=== PATIENT | female | born 1985 | race Caucasian/White ===

== ENCOUNTER 2024-02-09 21:30 | Emergency (ER) | payer BC ==
[~2024-02-09] VITALS: Ht 172.7 cm; Wt 100.0 kg
[~2024-02-09 21:30] MED LIST: CARAFATE 1GM1 G PO; CEFTIN500 MG PO; CELEXA 20MG20 MG/TAB PO; IBU600 MG PO; NORCO 325 MG-51 TAB PO; PERCOCET 325 MG1 TA2 PO; PRENATAL TABLET PO; PROAIR HFA0.09 MG/AC IH; PROTONIX 40MG T40 MG PO; TYLENOL 325MG325 MG PO; ZOFRAN ODT4 MG PO
[2024-02-09 21:54] VITALS: BP 140/85; PULSE 82; TEMP 98.7
[2024-02-09] MEDS ORDERED: Ibuprofen 400 MG TAB PO ONE (22:45)
[2024-02-09] MEDS ORDERED: Acetaminophen 500 MG TAB PO ONE (22:45)
== END 2024-02-09 22:35 | disposition left against medical advice (07) ==
LOC: COL.ER 21:30
DX: H69.92 Unspecified Eustachian tube disorder, left ear (principal)